=== PATIENT | male | born 1940 ===

== ENCOUNTER 2017-07-31 03:54 | Emergency (ER) | payer SELFPAY ==
[2017-07-31 04:02] VITALS: PULSE 72; TEMP 97.5; O2SAT 96
--- NOTE | 2017-07-31 04:07 | ED PDOC ---
Arrival/HPI - General Chief Complaint: Chemical Exposure Allergies/Home Meds Allergies/Adverse Reactions: Allergies No Known Allergies Allergy (Verified 07/31/17 03:58) Physical Exam Vital Signs Temp Pulse Resp Pulse Ox 07/31/17 03:58 97.5 F L 72 18 96 Disposition/Present on Arrival - Disposition
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
[2017-07-31 06:38] VITALS: BP 133/62; RESP 14
== END 2017-07-31 06:32 | disposition home or self-care (01) ==
LOC: H.ER 03:54
DX: Z77.098 Contact with and (suspected) exposure to other hazardous, chiefly nonmedicinal, chemicals (principal)